=== PATIENT | male | born 2000 | race Two or more races ===

== ENCOUNTER 2023-11-11 15:03 | Emergency (ER) | payer MEDICAID, OTHER ==
[~2023-11-11] VITALS: Ht 170.2 cm; Wt 81.0 kg
[2023-11-11] MEDS: ONDANSETRON ODT 4 MG TAB PO ONE (16:41)
[2023-11-11] MEDS: MAALOX PLUS or MAALOX 30 ML PO ONE (16:41)
[2023-11-11] MEDS: FAMOTIDINE 20 MG TAB PO ONE (16:41)
[2023-11-11] MEDS ORDERED: PANT40TA2 PO (16:59)
[2023-11-11 20:00] VITALS: BP 134/100; PULSE 64; RESP 18; TEMP 98.2; O2SAT 98
== END 2023-11-11 20:00 | disposition home or self-care (01) ==
LOC: ER 15:09
DX: K21.9 Gastro-esophageal reflux disease without esophagitis (principal); Z71.1 Person with feared health complaint in whom no diagnosis is made
CPT/HCPCS: 99284; Q0162